=== PATIENT | male | born 1960 | race Caucasian/White ===

== ENCOUNTER 2016-07-12 22:38 | Inpatient (IN) | payer OTHER, MEDICAID ==
[~2016-07-12] VITALS: Ht 160 cm; Wt 89.8 kg
[~2016-07-12 22:38] MED LIST: AMLO-511 PO; CITA10TA68 PO; LISI-661 PO; METF500T4 PO; METO25 PO; SITA50 PO
[2016-07-12] MEDS ORDERED: MAG HYDROX/AL HYDROX/SIMETH ES 30 ML SUSPENSION UDCUP PO PRN (23:30)
[2016-07-12] MEDS ORDERED: LORazepam 2 MG TABLET PO PRN (23:30)
[2016-07-12] MEDS ORDERED: LORazepam 2 MG TABLET PO ONE (23:30)
[2016-07-12] MEDS ORDERED: ZOLPIDEM TARTRATE 10 MG TABLET PO PRN (23:30)
[2016-07-12] MEDS ORDERED: ACETAMINOPHEN 325 MG TABLET PO PRN (23:30)
[2016-07-12] MEDS ORDERED: HALOPERIDOL 5 MG TABLET PO PRN (23:30)
[2016-07-12] MEDS ORDERED: LOPERAMIDE HCL 2 MG CAPSULE PO PRN (23:30)
[2016-07-12] MEDS ORDERED: MAGNESIUM HYDROXIDE SUSPENSION 30 ML UDCUP PO PRN (23:30)
[2016-07-12 23:39] LABS: BASOPHILS % (AUTO) 0.4 % (0.0-2.0); EOSINOPHILS % (AUTO) 0.6 % (1.0-6.0); HEMATOCRIT 42.8 % (41-53); HEMOGLOBIN 14.2 g/dL (13.5-17.5); LYMPHOCYTES # (AUTO) 1.7 K/uL (1.0-4.8); LYMPHOCYTES % (AUTO) 17.8 % (22.0-44.0); MEAN CORPUSCULAR HEMOGLOBIN 28.6 pg (26.0-34.0); MEAN CORPUSCULAR HGB CONC 33.2 G/dL (31.0-37.0); MEAN CORPUSCULAR VOLUME 86 fL (80-100); MONOCYTES # (AUTO) 0.6 K/uL (0.1-1.0); MONOCYTES % (AUTO) 6.1 % (2.0-9.0); NEUTROPHILS % (AUTO) 75.1 % (40.0-70.0); PLATELET COUNT (AUTO) 232 K/uL (150-450); RED BLOOD CELL COUNT(AUTO) 4.97 MIL/uL (4.50-5.90); RED CELL DISTRIBUTION WIDTH 12.4 % (11.5-14.5); WHITE BLOOD COUNT (AUTO) 9.3 K/uL (4.5-11.0)
[2016-07-12 23:41] LABS: GLUCOSE,POINT OF CARE 172 MG/DL (70-110)
[2016-07-12 23:51] LABS: ANION GAP 14 mmol/L (8-16); CALCIUM, TOTAL 8.3 mg/dL (8.8-10.5); CARBON DIOXIDE 24 mmol/L (22-29); CHLORIDE 101 mmol/L (98-107); CREATININE 1.07 mg/dL (0.60-1.30); GLOMERULAR FILTR. RATE CALC > 60 mL/min (>60); POTASSIUM 3.3 mmol/L (3.5-5.1); SODIUM SERUM 139 mmol/L (136-145); UREA NITROGEN, BLOOD 15 mg/dL (7-18)
[2016-07-12 23:57] LABS: ALANINE AMINOTRANSFERASE 40 U/L (12-78); ASPARTATE AMINOTRANSFERASE 21 U/L (15-37); BILIRUBIN,TOTAL 0.9 mg/dL (0.1-1.0); TOTAL PROTEIN, SERUM 7.9 g/dL (6.4-8.2)
[2016-07-13] MEDS ORDERED: CloNIDine HCL 0.1 MG TABLET PO ONE (00:45)
[2016-07-13] MEDS ORDERED: POTASSIUM CHLORIDE 20 MEQ ER TABLET PO ONE (00:45)
[2016-07-13 03:46] LABS: GLUCOSE,POINT OF CARE 133 MG/DL (70-110)
[2016-07-13 03:50] VITALS: BP 157/93
[2016-07-13] MEDS ORDERED: PNEUMOCOCCAL VACCINE POLYVALENT 0.5 ML VIAL [PPSV23] IM ONE (05:15)
[2016-07-13] MEDS ORDERED: INFLUENZA VIRUS VACCINE QVS 2016-17 (3YR+)/PF 60 MCG/0.5 ML SYRINGE IM ONE (05:15)
[2016-07-13 08:15] VITALS: BP 156/71
[2016-07-13] MEDS ORDERED: PETROLATUM,WHITE 71 GM JELLY TP PRN (15:30)
[2016-07-13] MEDS ORDERED: GLUCAGON,HUMAN RECOMBINANT 1 MG VIAL IM PRN (15:30)
[2016-07-13] MEDS ORDERED: BACITRACIN 28.4 GM OINTMENT TP PRN (15:30)
[2016-07-13] MEDS ORDERED: MAG HYDROX/AL HYDROX/SIMETH ES 30 ML SUSPENSION UDCUP PO PRN (15:30)
[2016-07-13] MEDS ORDERED: ACETAMINOPHEN 325 MG TABLET PO PRN (15:30)
[2016-07-13] MEDS ORDERED: MAGNESIUM HYDROXIDE SUSPENSION 30 ML UDCUP PO PRN (15:30)
[2016-07-13] MEDS ORDERED: ALBUTEROL SULFATE HFA 90 MCG/PUFF 8 GM INHALER IH PRN (15:30)
[2016-07-13] MEDS ORDERED: IBUPROFEN 600 MG TABLET PO PRN (15:30)
[2016-07-13] MEDS ORDERED: ONDANSETRON HCL 4 MG TABLET PO PRN (15:30)
[2016-07-13] MEDS ORDERED: LOPERAMIDE HCL 2 MG CAPSULE PO PRN (15:30)
[2016-07-13] MEDS ORDERED: BENZOCAINE/MENTHOL LOZENGE MM PRN (15:30)
[2016-07-13] MEDS ORDERED: CloNIDine HCL 0.1 MG TABLET PO PRN (15:30)
[2016-07-13 16:00] VITALS: BP 131/81
[2016-07-13] MEDS: METOPROLOL TARTRATE 25 MG TABLET PO SCH (16:38)
[2016-07-13] MEDS: MetFORMIN HCL 500 MG TABLET PO SCH (16:38)
[2016-07-13 17:17] LABS: GLUCOSE COMMENT 1 Received Meds; GLUCOSE,POINT OF CARE 124 MG/DL (70-110)
[2016-07-13 21:22] LABS: GLUCOSE,POINT OF CARE 140 MG/DL (70-110)
[2016-07-14 06:22] LABS: GLUCOSE,POINT OF CARE 161 MG/DL (70-110)
[2016-07-14] MEDS: MetFORMIN HCL 500 MG TABLET PO SCH ×2 (06:27→16:41)
[2016-07-14] MEDS: INSULIN ASPART 100 UNITS/ML SQ PRN ×2 (06:30→16:44)
[2016-07-14 06:39] VITALS: BP 138/80
[2016-07-14 08:30] VITALS: BP 146/76
[2016-07-14] MEDS: CHOLECALCIFEROL (VIT D3) 1,000 UNITS TABLET PO SCH (09:03)
[2016-07-14] MEDS: LISINOPRIL 20 MG TABLET PO SCH (09:03)
[2016-07-14] MEDS: METOPROLOL TARTRATE 25 MG TABLET PO SCH ×2 (09:03→16:41)
[2016-07-14] MEDS: CITALOPRAM HYDROBROMIDE 20 MG TABLET PO SCH (09:03)
[2016-07-14 09:53] LABS: ANION GAP 10 mmol/L (8-16); CALCIUM, TOTAL 8.4 mg/dL (8.8-10.5); CARBON DIOXIDE 27 mmol/L (22-29); CHLORIDE 108 mmol/L (98-107); CREATININE 0.95 mg/dL (0.60-1.30); GLOMERULAR FILTR. RATE CALC > 60 mL/min (>60); POTASSIUM 3.7 mmol/L (3.5-5.1); SODIUM SERUM 145 mmol/L (136-145); UREA NITROGEN, BLOOD 16 mg/dL (7-18)
[2016-07-14 10:09] LABS: HEMOGLOBIN A1C 7.1 % (4.5-6.2)
[2016-07-14 11:17] LABS: GLUCOSE,POINT OF CARE 127 MG/DL (70-110)
[2016-07-14 16:00] VITALS: BP 140/68
[2016-07-14 17:02] LABS: GLUCOSE COMMENT 1 Received Meds; GLUCOSE,POINT OF CARE 159 MG/DL (70-110)
[2016-07-14 21:11] LABS: GLUCOSE,POINT OF CARE 134 MG/DL (70-110)
[2016-07-15] MEDS: MetFORMIN HCL 500 MG TABLET PO SCH ×2 (06:18→17:04)
[2016-07-15 06:21] LABS: GLUCOSE,POINT OF CARE 100 MG/DL (70-110)
[2016-07-15 06:37] VITALS: BP 118/68
[2016-07-15 08:38] VITALS: BP 135/68
[2016-07-15] MEDS: CITALOPRAM HYDROBROMIDE 20 MG TABLET PO SCH (09:16)
[2016-07-15] MEDS: CHOLECALCIFEROL (VIT D3) 1,000 UNITS TABLET PO SCH (09:16)
[2016-07-15] MEDS: LISINOPRIL 20 MG TABLET PO SCH (09:16)
[2016-07-15] MEDS: METOPROLOL TARTRATE 25 MG TABLET PO SCH ×2 (09:16→17:04)
[2016-07-15 12:07] LABS: GLUCOSE,POINT OF CARE 130 MG/DL (70-110)
[2016-07-15 16:19] VITALS: BP 129/72
[2016-07-15 16:27] LABS: GLUCOSE COMMENT 1 Received Meds; GLUCOSE,POINT OF CARE 167 MG/DL (70-110)
[2016-07-15] MEDS: INSULIN ASPART 100 UNITS/ML SQ PRN (17:06)
[2016-07-15 21:17] LABS: GLUCOSE,POINT OF CARE 115 MG/DL (70-110)
[2016-07-16 06:17] LABS: GLUCOSE COMMENT 1 Received Meds; GLUCOSE,POINT OF CARE 116 MG/DL (70-110)
[2016-07-16] MEDS: MetFORMIN HCL 500 MG TABLET PO SCH ×2 (06:18→17:35)
[2016-07-16 06:34] VITALS: BP 138/84
[2016-07-16] MEDS: CITALOPRAM HYDROBROMIDE 20 MG TABLET PO SCH (09:03)
[2016-07-16] MEDS: CHOLECALCIFEROL (VIT D3) 1,000 UNITS TABLET PO SCH (09:03)
[2016-07-16] MEDS: METOPROLOL TARTRATE 25 MG TABLET PO SCH ×2 (09:03→17:35)
[2016-07-16] MEDS: LISINOPRIL 20 MG TABLET PO SCH (09:03)
[2016-07-16 09:45] VITALS: BP 162/93
[2016-07-16 12:02] LABS: GLUCOSE,POINT OF CARE 135 MG/DL (70-110)
[2016-07-16] MEDS: INSULIN ASPART 100 UNITS/ML SQ PRN (16:40)
[2016-07-16 16:51] LABS: GLUCOSE,POINT OF CARE 152 MG/DL (70-110)
[2016-07-16 17:30] VITALS: BP 163/95
[2016-07-16 18:05] VITALS: BP 186/101
[2016-07-16 19:42] VITALS: BP 159/91
[2016-07-16 21:16] LABS: GLUCOSE,POINT OF CARE 111 MG/DL (70-110)
[2016-07-17 06:08] LABS: GLUCOSE COMMENT 1 Received Meds; GLUCOSE,POINT OF CARE 109 MG/DL (70-110)
[2016-07-17] MEDS: MetFORMIN HCL 500 MG TABLET PO SCH ×2 (06:16→17:03)
[2016-07-17 06:22] VITALS: BP 160/92
[2016-07-17] MEDS: CHOLECALCIFEROL (VIT D3) 1,000 UNITS TABLET PO SCH (08:48)
[2016-07-17] MEDS: CITALOPRAM HYDROBROMIDE 20 MG TABLET PO SCH (08:48)
[2016-07-17] MEDS: METOPROLOL TARTRATE 25 MG TABLET PO SCH ×2 (08:48→17:03)
[2016-07-17] MEDS: LISINOPRIL 20 MG TABLET PO SCH (08:48)
[2016-07-17 09:35] VITALS: BP 134/87
[2016-07-17 12:00] LABS: GLUCOSE,POINT OF CARE 127 MG/DL (70-110)
[2016-07-17 16:07] VITALS: BP 155/89
[2016-07-17] MEDS: INSULIN ASPART 100 UNITS/ML SQ PRN (17:19)
[2016-07-17 18:02] LABS: GLUCOSE,POINT OF CARE 164 MG/DL (70-110)
[2016-07-18] MEDS: MetFORMIN HCL 500 MG TABLET PO SCH ×2 (06:21→16:49)
[2016-07-18 06:53] LABS: GLUCOSE,POINT OF CARE 109 MG/DL (70-110)
[2016-07-18 07:05] VITALS: BP 131/91
[2016-07-18 08:20] VITALS: BP 155/94
[2016-07-18] MEDS: CITALOPRAM HYDROBROMIDE 20 MG TABLET PO SCH (09:58)
[2016-07-18] MEDS: LISINOPRIL 20 MG TABLET PO SCH (09:58)
[2016-07-18] MEDS: METOPROLOL TARTRATE 25 MG TABLET PO SCH ×2 (09:58→16:49)
[2016-07-18] MEDS: CHOLECALCIFEROL (VIT D3) 1,000 UNITS TABLET PO SCH (09:58)
[2016-07-18 12:37] LABS: GLUCOSE,POINT OF CARE 175 MG/DL (70-110)
[2016-07-18] MEDS: INSULIN ASPART 100 UNITS/ML SQ PRN (12:37)
[2016-07-18] MEDS ORDERED: VITAD1000 PO (15:40)
[2016-07-18 16:00] VITALS: BP 132/88
[2016-07-18 17:47] LABS: GLUCOSE COMMENT 1 Received Meds; GLUCOSE,POINT OF CARE 134 MG/DL (70-110)
== END 2016-07-18 17:45 | disposition home or self-care (01) | DRG 885 ==
LOC: EMS 22:40 → AHU 23:44 → EMS 07-13 00:22 → B3A 07-13 03:02
PROVIDERS: ADMIT Psychiatry & Neurology Psychiatry; ATTEND Psychiatry & Neurology Child & Adolescent Psychiatry
DX: F33.2 Major depressive disorder, recurrent severe without psychotic features (principal); R45.851 Suicidal ideations; E11.65 Type 2 diabetes mellitus with hyperglycemia; E55.9 Vitamin D deficiency, unspecified; E66.9 Obesity, unspecified; E87.6 Hypokalemia; F12.90 Cannabis use, unspecified, uncomplicated; I10 Essential (primary) hypertension; K59.00 Constipation, unspecified; Z79.899 Other long term (current) drug therapy; Z86.73 Personal history of transient ischemic attack (TIA), and cerebral infarction without residual deficits; Z91.5 Personal history of self-harm; Z79.84 Long term (current) use of oral hypoglycemic drugs; Z81.3 Family history of other psychoactive substance abuse and dependence; Z68.35 Body mass index [BMI] 35.0-35.9, adult; Z28.21 Immunization not carried out because of patient refusal
CPT/HCPCS: 82962; 83036; 90471; 99285; G0480

== ENCOUNTER 2017-05-19 23:02 | Inpatient (IN) | payer OTHER, MEDICAID ==
[~2017-05-19] VITALS: Ht 160 cm; Wt 96.3 kg
[~2017-05-19 23:02] MED LIST changes: -AMLO-511 PO; -SITA50 PO; +VITAD1000 PO
[2017-05-19 23:22] LABS: GLUCOSE,POINT OF CARE 221 MG/DL (70-110)
[2017-05-19 23:37] LABS: BASOPHILS # (AUTO) 0.05 K/uL (0.00-0.20); BASOPHILS % (AUTO) 0.4 % (0.0-2.0); EOSINOPHILS # (AUTO) 0.18 K/uL (0.00-0.70); EOSINOPHILS % (AUTO) 1.31 % (1.0-6.0); HEMATOCRIT 45.8 % (41-53); HEMOGLOBIN 15.1 g/dL (13.5-17.5); LYMPHOCYTES # (AUTO) 3.3 K/uL (1.0-4.8); LYMPHOCYTES % (AUTO) 24.6 % (22.0-44.0); MEAN CORPUSCULAR HEMOGLOBIN 28.8 pg (26.0-34.0); MEAN CORPUSCULAR HGB CONC 33.1 G/dL (31.0-37.0); MEAN CORPUSCULAR VOLUME 87 fL (80-100); MONOCYTES # (AUTO) 0.9 K/uL (0.1-1.0); MONOCYTES % (AUTO) 6.5 % (2.0-9.0); NEUTROPHILS # (AUTO) 9.1 K/uL (1.8-7.7); NEUTROPHILS % (AUTO) 67.1 % (40.0-70.0); PLATELET COUNT (AUTO) 259 K/uL (150-450); RED BLOOD CELL COUNT(AUTO) 5.25 MIL/uL (4.50-5.90); RED CELL DISTRIBUTION WIDTH 12.2 % (11.5-14.5)
[2017-05-19 23:46] LABS: ANION GAP 11 mmol/L (8-16); CALCIUM, TOTAL 8.5 mg/dL (8.8-10.5); CARBON DIOXIDE 28 mmol/L (22-29); CHLORIDE 94 mmol/L (98-107); CREATININE 1.23 mg/dL (0.60-1.30); GLOMERULAR FILTR. RATE CALC > 60 mL/min (>60); GLUCOSE,RANDOM 232 mg/dL (70-110); POTASSIUM 3.2 mmol/L (3.5-5.1); SODIUM SERUM 133 mmol/L (136-145); UREA NITROGEN, BLOOD 18 mg/dL (7-18)
[2017-05-19 23:52] LABS: ALANINE AMINOTRANSFERASE 71 U/L (12-78); ALBUMIN 4.3 g/dL (3.4-5.0); ALKALINE PHOSPHATASE 106 U/L (46-116); ASPARTATE AMINOTRANSFERASE 29 U/L (15-37); BILIRUBIN,TOTAL 0.6 mg/dL (0.1-1.0); TOTAL PROTEIN, SERUM 8.6 g/dL (6.4-8.2)
[2017-05-20 00:49] LABS: AMPHET/METH SCREEN,URINE NEGATIVE (NEGATIVE); BARBITURATE SCREEN, URINE NEGATIVE (NEGATIVE); BENZODIAZEPINES SCREEN,URINE NEGATIVE (NEGATIVE); CANNABINOID SCREEN,URINE NEGATIVE (NEGATIVE); COCAINE SCREEN,URINE NEGATIVE (NEGATIVE); METHADONE SCREEN, URINE NEGATIVE (NEGATIVE); OPIATE SCREEN,URINE NEGATIVE (NEGATIVE)
[2017-05-20 00:50] LABS: PHENCYCLIDINE SCREEN,URINE NEGATIVE (NEGATIVE)
[2017-05-20] MEDS ORDERED: ZOLPIDEM TARTRATE 10 MG TABLET PO PRN (03:15)
[2017-05-20] MEDS ORDERED: HALOPERIDOL 5 MG TABLET PO PRN (03:15)
[2017-05-20 04:30] VITALS: BP 143/82
[2017-05-20 04:46] LABS: APPEARANCE,URINE CLEAR (CLEAR); BILIRUBIN,URINE NEGATIVE (NEGATIVE); GLUCOSE, URINE (UA) 500 mg/dL (NEGATIVE); KETONES,URINE TRACE mg/dL (NEGATIVE); LEUKOCYTE ESTERASE ,URINE NEGATIVE (NEGATIVE); NITRATE,URINE NEGATIVE (NEGATIVE); OCCULT BLOOD,URINE NEGATIVE (NEGATIVE); PROTEIN,URINE NEGATIVE (NEGATIVE); UROBILINOGEN,URINE 0.2 mg/dL (<=1.0)
[2017-05-20 05:00] LABS: BACTERIA,URINE None Seen /HPF (None Seen); RBC,URINE 0-2 /HPF (0-2); SQUAMOUS EPITHELIAL CELL,UR Few /LPF (None Seen); WBC,URINE 0-2 /HPF (0-5)
[2017-05-20] MEDS ORDERED: PNEUMOCOCCAL VACCINE POLYVALENT 0.5 ML VIAL [PPSV23] IM ONE (05:30)
[2017-05-20] MEDS ORDERED: INFLUENZA VIRUS VACCINE QVS 2017-18 (3YR+)/PF 60 MCG/0.5 ML SYRINGE IM ONE (05:30)
[2017-05-20] MEDS: LORazepam 2 MG TABLET PO PRN (05:41)
[2017-05-20 05:42] LABS: GLUCOMETER DEV NAME(LOC) BV2S; GLUCOSE,POINT OF CARE 217 MG/DL (70-110)
[2017-05-20] MEDS: MetFORMIN HCL 500 MG TABLET PO SCH ×2 (06:50→16:32)
[2017-05-20 08:24] VITALS: BP 134/79
[2017-05-20] MEDS: LISINOPRIL 20 MG TABLET PO SCH (09:00)
[2017-05-20] MEDS: METOPROLOL TARTRATE 25 MG TABLET PO SCH ×2 (09:00→16:32)
[2017-05-20] MEDS: CHOLECALCIFEROL (VIT D3) 1,000 UNITS TABLET PO SCH (09:00)
[2017-05-20] MEDS: CITALOPRAM HYDROBROMIDE 20 MG TABLET PO SCH (10:20)
[2017-05-20] MEDS: OLANZapine 5 MG TABLET PO SCH ×2 (10:20→16:33)
[2017-05-20] MEDS ORDERED: CITA20TA9 PO (14:58)
[2017-05-20] MEDS ORDERED: LISI-662 PO (14:58)
[2017-05-20] MEDS ORDERED: LOPERAMIDE HCL 2 MG CAPSULE PO PRN (15:00)
[2017-05-20] MEDS ORDERED: POTASSIUM CHLORIDE 20 MEQ ER TABLET PO ONE (15:00)
[2017-05-20 17:28] VITALS: BP 144/84
[2017-05-20] MEDS ORDERED: ACETAMINOPHEN 325 MG TABLET PO PRN (20:15)
[2017-05-20] MEDS ORDERED: IBUPROFEN 400 MG TABLET PO PRN (20:15)
[2017-05-21 06:30] VITALS: BP 144/86
[2017-05-21] MEDS: MetFORMIN HCL 500 MG TABLET PO SCH ×2 (06:58→16:33)
[2017-05-21] MEDS ORDERED: MetFORMIN HCL 500 MG TABLET PO SCH (07:00)
[2017-05-21 08:34] VITALS: BP 158/69
[2017-05-21] MEDS: CITALOPRAM HYDROBROMIDE 20 MG TABLET PO SCH (08:35)
[2017-05-21] MEDS: OLANZapine 5 MG TABLET PO SCH ×2 (08:35→16:36)
[2017-05-21] MEDS: LISINOPRIL 20 MG TABLET PO SCH (08:35)
[2017-05-21] MEDS: CHOLECALCIFEROL (VIT D3) 1,000 UNITS TABLET PO SCH (08:35)
[2017-05-21] MEDS: METOPROLOL TARTRATE 25 MG TABLET PO SCH ×2 (08:35→16:33)
[2017-05-21 08:45] LABS: HEMOGLOBIN A1C 8.6 % (4.5-6.2)
[2017-05-21] MEDS ORDERED: METOPROLOL TARTRATE 25 MG TABLET PO SCH (09:00)
[2017-05-21] MEDS ORDERED: LISINOPRIL 20 MG TABLET PO SCH (09:00)
[2017-05-21] MEDS ORDERED: CHOLECALCIFEROL (VIT D3) 1,000 UNITS TABLET PO SCH (09:00)
[2017-05-21 09:37] LABS: ALANINE AMINOTRANSFERASE 69 U/L (12-78); ALBUMIN 3.6 g/dL (3.4-5.0); ALKALINE PHOSPHATASE 81 U/L (46-116); ANION GAP 9 mmol/L (8-16); ASPARTATE AMINOTRANSFERASE 37 U/L (15-37); BILIRUBIN,TOTAL 0.8 mg/dL (0.1-1.0); CALCIUM, TOTAL 8.6 mg/dL (8.8-10.5); CARBON DIOXIDE 28 mmol/L (22-29); CHLORIDE 101 mmol/L (98-107); CHOL/HDL RATIO 4.8 (4.2-7.3); CHOLESTEROL 159 mg/dL (131-200); CREATININE 0.78 mg/dL (0.60-1.30); GLOMERULAR FILTR. RATE CALC > 60 mL/min (>60); GLUCOSE,RANDOM 214 mg/dL (70-110); HDL CHOLESTEROL 33 mg/dL (40-60); LDL CHOL (CALC.) 95 mg/dL (0-130); POTASSIUM 3.4 mmol/L (3.5-5.1); SODIUM SERUM 138 mmol/L (136-145); THYROID STIMULATING HORMONE 0.87 uIU/mL (0.36-3.74); TOTAL PROTEIN, SERUM 7.4 g/dL (6.4-8.2); TRIGLYCERIDES 153 mg/dL (15-150); UREA NITROGEN, BLOOD 18 mg/dL (7-18)
[2017-05-21] MEDS ORDERED: POTASSIUM CHLORIDE 20 MEQ ER TABLET PO ONE (15:15)
[2017-05-21] MEDS ORDERED: POTASSIUM CHLORIDE 10 MEQ ER TABLET PO ONE (15:15)
[2017-05-21 16:09] VITALS: BP 121/84
[2017-05-22 06:15] VITALS: BP 162/89
[2017-05-22 06:27] LABS: GLUCOMETER DEV NAME(LOC) BV2S; GLUCOSE,POINT OF CARE 212 MG/DL (70-110)
[2017-05-22] MEDS: MetFORMIN HCL 500 MG TABLET PO SCH ×2 (06:42→17:13)
[2017-05-22 08:24] VITALS: BP 140/86
[2017-05-22] MEDS: METOPROLOL TARTRATE 25 MG TABLET PO SCH ×2 (08:43→17:13)
[2017-05-22] MEDS: LISINOPRIL 20 MG TABLET PO SCH (08:43)
[2017-05-22] MEDS: OLANZapine 5 MG TABLET PO SCH ×2 (08:44→17:13)
[2017-05-22] MEDS: CITALOPRAM HYDROBROMIDE 20 MG TABLET PO SCH (08:44)
[2017-05-22] MEDS: CHOLECALCIFEROL (VIT D3) 1,000 UNITS TABLET PO SCH (08:44)
[2017-05-22 16:01] VITALS: BP 131/80
[2017-05-23 06:22] LABS: GLUCOMETER DEV NAME(LOC) BV2S; GLUCOSE,POINT OF CARE 184 MG/DL (70-110)
[2017-05-23 06:35] VITALS: BP 116/85
[2017-05-23] MEDS: MetFORMIN HCL 500 MG TABLET PO SCH ×2 (06:52→16:33)
[2017-05-23 08:30] LABS: BASOPHILS # (AUTO) 0.03 K/uL (0.00-0.20); BASOPHILS % (AUTO) 0.4 % (0.0-2.0); EOSINOPHILS # (AUTO) 0.16 K/uL (0.00-0.70); EOSINOPHILS % (AUTO) 2.04 % (1.0-6.0); HEMATOCRIT 42.1 % (41-53); HEMOGLOBIN 13.9 g/dL (13.5-17.5); LYMPHOCYTES # (AUTO) 2.8 K/uL (1.0-4.8); LYMPHOCYTES % (AUTO) 34.3 % (22.0-44.0); MEAN CORPUSCULAR HGB CONC 33.1 G/dL (31.0-37.0); MEAN CORPUSCULAR VOLUME 88 fL (80-100); MONOCYTES # (AUTO) 0.5 K/uL (0.1-1.0); MONOCYTES % (AUTO) 5.9 % (2.0-9.0); NEUTROPHILS # (AUTO) 4.6 K/uL (1.8-7.7); NEUTROPHILS % (AUTO) 57.4 % (40.0-70.0); PLATELET COUNT (AUTO) 216 K/uL (150-450); RED CELL DISTRIBUTION WIDTH 12.6 % (11.5-14.5)
[2017-05-23 08:31] VITALS: BP 143/80
[2017-05-23] MEDS: OLANZapine 5 MG TABLET PO SCH ×2 (08:37→16:33)
[2017-05-23] MEDS: CITALOPRAM HYDROBROMIDE 20 MG TABLET PO SCH (08:37)
[2017-05-23] MEDS: METOPROLOL TARTRATE 25 MG TABLET PO SCH ×2 (08:37→16:33)
[2017-05-23] MEDS: LISINOPRIL 20 MG TABLET PO SCH (08:37)
[2017-05-23] MEDS: CHOLECALCIFEROL (VIT D3) 1,000 UNITS TABLET PO SCH (08:37)
[2017-05-23 16:12] VITALS: BP 140/87
[2017-05-23 16:17] LABS: GLUCOMETER DEV NAME(LOC) BV2S; GLUCOSE,POINT OF CARE 217 MG/DL (70-110)
[2017-05-24 00:58] VITALS: BP 140/84
[2017-05-24] MEDS: MetFORMIN HCL 500 MG TABLET PO SCH ×2 (06:44→16:37)
[2017-05-24 06:57] LABS: GLUCOMETER DEV NAME(LOC) BV2S; GLUCOSE,POINT OF CARE 225 MG/DL (70-110)
[2017-05-24 08:41] VITALS: BP 147/86
[2017-05-24] MEDS: CHOLECALCIFEROL (VIT D3) 1,000 UNITS TABLET PO SCH (08:55)
[2017-05-24] MEDS: CITALOPRAM HYDROBROMIDE 20 MG TABLET PO SCH (08:55)
[2017-05-24] MEDS: LISINOPRIL 20 MG TABLET PO SCH (08:55)
[2017-05-24] MEDS: METOPROLOL TARTRATE 25 MG TABLET PO SCH ×2 (08:55→16:37)
[2017-05-24] MEDS: OLANZapine 5 MG TABLET PO SCH ×2 (08:55→16:37)
[2017-05-24 15:52] VITALS: BP 164/90
[2017-05-24 16:23] LABS: GLUCOMETER DEV NAME(LOC) BV2S; GLUCOSE,POINT OF CARE 214 MG/DL (70-110)
[2017-05-25 06:34] VITALS: BP 133/85
[2017-05-25] MEDS: MetFORMIN HCL 500 MG TABLET PO SCH ×2 (06:52→16:21)
[2017-05-25 07:07] LABS: GLUCOMETER DEV NAME(LOC) BV2S; GLUCOSE,POINT OF CARE 196 MG/DL (70-110)
[2017-05-25] MEDS: LISINOPRIL 20 MG TABLET PO SCH (08:23)
[2017-05-25] MEDS: METOPROLOL TARTRATE 25 MG TABLET PO SCH ×2 (08:23→16:22)
[2017-05-25] MEDS: CITALOPRAM HYDROBROMIDE 20 MG TABLET PO SCH (08:23)
[2017-05-25] MEDS: CHOLECALCIFEROL (VIT D3) 1,000 UNITS TABLET PO SCH (08:23)
[2017-05-25] MEDS: OLANZapine 5 MG TABLET PO SCH ×2 (08:23→16:22)
[2017-05-25 08:56] VITALS: BP 129/69
[2017-05-25 16:10] VITALS: BP 134/78
[2017-05-25 17:58] LABS: GLUCOMETER DEV NAME(LOC) BV2S; GLUCOSE,POINT OF CARE 245 MG/DL (70-110)
[2017-05-26 00:10] VITALS: BP 144/90
[2017-05-26 06:48] LABS: GLUCOMETER DEV NAME(LOC) BV2S; GLUCOSE,POINT OF CARE 168 MG/DL (70-110)
[2017-05-26] MEDS: MetFORMIN HCL 500 MG TABLET PO SCH ×2 (07:10→17:05)
[2017-05-26] MEDS: CHOLECALCIFEROL (VIT D3) 1,000 UNITS TABLET PO SCH (08:20)
[2017-05-26] MEDS: LISINOPRIL 20 MG TABLET PO SCH (08:21)
[2017-05-26] MEDS: CITALOPRAM HYDROBROMIDE 20 MG TABLET PO SCH (08:21)
[2017-05-26] MEDS: OLANZapine 5 MG TABLET PO SCH ×2 (08:21→17:05)
[2017-05-26] MEDS: METOPROLOL TARTRATE 25 MG TABLET PO SCH ×2 (08:21→17:05)
[2017-05-26 08:22] VITALS: BP 146/67
[2017-05-26 16:08] VITALS: BP 142/83
[2017-05-26 16:52] LABS: GLUCOMETER DEV NAME(LOC) BV2S; GLUCOSE,POINT OF CARE 226 MG/DL (70-110)
[2017-05-27 01:09] VITALS: BP 119/76
[2017-05-27 06:02] LABS: GLUCOMETER DEV NAME(LOC) BV2S; GLUCOSE,POINT OF CARE 201 MG/DL (70-110)
[2017-05-27] MEDS: MetFORMIN HCL 500 MG TABLET PO SCH ×2 (06:39→16:45)
[2017-05-27 08:05] VITALS: BP 158/90
[2017-05-27] MEDS: METOPROLOL TARTRATE 25 MG TABLET PO SCH ×2 (08:05→16:45)
[2017-05-27] MEDS: CHOLECALCIFEROL (VIT D3) 1,000 UNITS TABLET PO SCH (08:05)
[2017-05-27] MEDS: LISINOPRIL 20 MG TABLET PO SCH (08:05)
[2017-05-27] MEDS: CITALOPRAM HYDROBROMIDE 20 MG TABLET PO SCH (08:05)
[2017-05-27] MEDS: OLANZapine 5 MG TABLET PO SCH ×2 (08:06→16:45)
[2017-05-27 10:00] VITALS: BP 148/76
[2017-05-27] MEDS: LORazepam 2 MG TABLET PO PRN (14:03)
[2017-05-27 15:30] VITALS: BP 135/78
[2017-05-27 16:08] VITALS: BP 155/87
[2017-05-27 18:37] LABS: GLUCOMETER DEV NAME(LOC) BV2S; GLUCOSE,POINT OF CARE 232 MG/DL (70-110)
[2017-05-28 00:52] VITALS: BP 157/89
[2017-05-28 06:48] LABS: GLUCOMETER DEV NAME(LOC) BV2S; GLUCOSE,POINT OF CARE 178 MG/DL (70-110)
[2017-05-28] MEDS: MetFORMIN HCL 500 MG TABLET PO SCH ×2 (07:06→16:39)
[2017-05-28 08:10] VITALS: BP 163/91
[2017-05-28] MEDS: OLANZapine 5 MG TABLET PO SCH ×2 (08:13→16:39)
[2017-05-28] MEDS: CHOLECALCIFEROL (VIT D3) 1,000 UNITS TABLET PO SCH (08:13)
[2017-05-28] MEDS: CITALOPRAM HYDROBROMIDE 20 MG TABLET PO SCH (08:13)
[2017-05-28] MEDS: METOPROLOL TARTRATE 25 MG TABLET PO SCH ×2 (08:13→16:39)
[2017-05-28] MEDS: LISINOPRIL 20 MG TABLET PO SCH (08:13)
[2017-05-28 09:30] VITALS: BP 147/89
[2017-05-28 16:09] VITALS: BP 144/66
[2017-05-28 16:32] LABS: GLUCOMETER DEV NAME(LOC) BV2S; GLUCOSE,POINT OF CARE 204 MG/DL (70-110)
[2017-05-29 00:25] VITALS: BP 131/85
[2017-05-29 06:38] LABS: GLUCOMETER DEV NAME(LOC) BV2S; GLUCOSE,POINT OF CARE 183 MG/DL (70-110)
[2017-05-29] MEDS: MetFORMIN HCL 500 MG TABLET PO SCH ×2 (06:38→17:01)
[2017-05-29 08:00] VITALS: BP 173/90
[2017-05-29] MEDS: LISINOPRIL 20 MG TABLET PO SCH (08:05)
[2017-05-29] MEDS: METOPROLOL TARTRATE 25 MG TABLET PO SCH ×2 (08:05→17:01)
[2017-05-29] MEDS: CHOLECALCIFEROL (VIT D3) 1,000 UNITS TABLET PO SCH (08:05)
[2017-05-29] MEDS: OLANZapine 5 MG TABLET PO SCH ×2 (08:05→17:02)
[2017-05-29] MEDS: CITALOPRAM HYDROBROMIDE 20 MG TABLET PO SCH (08:05)
[2017-05-29 09:30] VITALS: BP 155/90
[2017-05-29] MEDS: AmLODIPine BESYLATE 5 MG TABLET PO SCH (10:44)
[2017-05-29 12:30] VITALS: BP 147/86
[2017-05-29] MEDS: LORazepam 2 MG TABLET PO PRN (13:12)
[2017-05-29 14:15] VITALS: BP 136/80
[2017-05-29 16:11] VITALS: BP 146/84
[2017-05-29 17:12] LABS: GLUCOMETER DEV NAME(LOC) BV2S; GLUCOSE,POINT OF CARE 166 MG/DL (70-110)
[2017-05-30 01:16] VITALS: BP 132/86
[2017-05-30 06:37] LABS: GLUCOMETER DEV NAME(LOC) BV2S; GLUCOSE,POINT OF CARE 169 MG/DL (70-110)
[2017-05-30] MEDS: MetFORMIN HCL 500 MG TABLET PO SCH ×2 (07:07→17:04)
[2017-05-30 08:15] VITALS: BP 155/89
[2017-05-30] MEDS: METOPROLOL TARTRATE 25 MG TABLET PO SCH ×2 (08:18→17:03)
[2017-05-30] MEDS: OLANZapine 5 MG TABLET PO SCH ×2 (08:18→17:03)
[2017-05-30] MEDS: LISINOPRIL 20 MG TABLET PO SCH (08:18)
[2017-05-30] MEDS: CHOLECALCIFEROL (VIT D3) 1,000 UNITS TABLET PO SCH (08:18)
[2017-05-30] MEDS: AmLODIPine BESYLATE 5 MG TABLET PO SCH (08:18)
[2017-05-30] MEDS: CITALOPRAM HYDROBROMIDE 20 MG TABLET PO SCH (08:18)
[2017-05-30 09:30] VITALS: BP 140/79
[2017-05-30 16:03] VITALS: BP 139/83
[2017-05-30 16:42] LABS: GLUCOMETER DEV NAME(LOC) BV2S; GLUCOSE,POINT OF CARE 205 MG/DL (70-110)
[2017-05-31 06:18] VITALS: BP 139/78
[2017-05-31 06:23] LABS: GLUCOMETER DEV NAME(LOC) BV2S; GLUCOSE,POINT OF CARE 170 MG/DL (70-110)
[2017-05-31] MEDS: MetFORMIN HCL 500 MG TABLET PO SCH ×2 (07:04→16:38)
[2017-05-31 08:18] VITALS: BP 140/76
[2017-05-31] MEDS: CHOLECALCIFEROL (VIT D3) 1,000 UNITS TABLET PO SCH (08:23)
[2017-05-31] MEDS: LISINOPRIL 20 MG TABLET PO SCH (08:23)
[2017-05-31] MEDS: OLANZapine 5 MG TABLET PO SCH ×2 (08:23→16:38)
[2017-05-31] MEDS: CITALOPRAM HYDROBROMIDE 20 MG TABLET PO SCH (08:23)
[2017-05-31] MEDS: AmLODIPine BESYLATE 5 MG TABLET PO SCH (08:23)
[2017-05-31] MEDS: METOPROLOL TARTRATE 25 MG TABLET PO SCH ×2 (08:23→16:38)
[2017-05-31 16:08] VITALS: BP 146/90
[2017-05-31 20:08] LABS: GLUCOMETER DEV NAME(LOC) BV2S; GLUCOSE,POINT OF CARE 190 MG/DL (70-110)
[2017-06-01 00:47] VITALS: BP 125/81
[2017-06-01 06:23] LABS: GLUCOMETER DEV NAME(LOC) BV2S; GLUCOSE,POINT OF CARE 165 MG/DL (70-110)
[2017-06-01] MEDS: MetFORMIN HCL 500 MG TABLET PO SCH (06:42)
[2017-06-01 08:17] VITALS: BP 140/91
[2017-06-01] MEDS: LISINOPRIL 20 MG TABLET PO SCH (08:30)
[2017-06-01] MEDS: OLANZapine 5 MG TABLET PO SCH (08:30)
[2017-06-01] MEDS: AmLODIPine BESYLATE 5 MG TABLET PO SCH (08:30)
[2017-06-01] MEDS: METOPROLOL TARTRATE 25 MG TABLET PO SCH (08:30)
[2017-06-01] MEDS: CHOLECALCIFEROL (VIT D3) 1,000 UNITS TABLET PO SCH (08:30)
[2017-06-01] MEDS: CITALOPRAM HYDROBROMIDE 20 MG TABLET PO SCH (08:30)
[2017-06-01] MEDS ORDERED: METF500T4 PO (12:10)
[2017-06-01] MEDS ORDERED: OLAN5TAB2 PO (12:10)
[2017-06-01] MEDS ORDERED: AMLO-511 PO (12:10)
== END 2017-06-01 15:25 | disposition home or self-care (01) | DRG 885 ==
LOC: EMS 23:04 → B2X 05-20 03:22 → EMS 05-20 04:00
PROVIDERS: ADMIT Psychiatry & Neurology Child & Adolescent Psychiatry; ATTEND Psychiatry & Neurology Child & Adolescent Psychiatry
DX: F23 Brief psychotic disorder (principal); R45.851 Suicidal ideations; E11.9 Type 2 diabetes mellitus without complications; D72.829 Elevated white blood cell count, unspecified; E55.9 Vitamin D deficiency, unspecified; E87.6 Hypokalemia; F41.9 Anxiety disorder, unspecified; I10 Essential (primary) hypertension; Z86.73 Personal history of transient ischemic attack (TIA), and cerebral infarction without residual deficits; Z79.899 Other long term (current) drug therapy
CPT/HCPCS: 82962; 83036; 84132; 84443; 99285; G0480